=== PATIENT | female | born 1980 | race Caucasian/White ===

== ENCOUNTER 2018-10-03 08:09 | Emergency (ER) | payer BC ==
[2018-10-03 09:34] VITALS: BP 141/91
--- NOTE | 2018-10-03 09:48 | UC ---
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 pt states since yesterday progressive right ear pain mild left no fever, chills + analgesia with improvement. no n/v no sob, no cough no medications reviewed - History of Current Complaint Chief Complaint: UCEar Stated Complaint: BILATERAL EAR CONCERN Time Seen by Provider: 10/03/18 09:40 Hx Obtained From: Patient Hx Last Menstrual Period: 10/03/18 Pain Intensity: 4 - Allergies/Home Medications Allergies/Adverse Reactions: Allergies Allergy/AdvReac Type Severity Reaction Status Date / Time No Known Allergies Allergy Verified 10/03/18 09:30 Home Medications: Home Medications Bcp 1 tab DAILY 10/03/18 [History Confirmed 10/03/18] PMH/Surg Hx/FS Hx/Imm Hx Previously Healthy: Yes - Surgical History Surgical History: None - Family History Known Family History: Positive: Non-Contributory - Social History Occupation: Employed Full-time Lives: With Family Alcohol Use: Weekly Substance Use Type: None Smoking Status (MU): Never Smoked Tobacco Review of Systems All Other Systems Reviewed And Are Negative: Yes ENT: Positive: Ear Ache, Nasal Discharge, Sinus Congestion, Sinus Pain/ Tenderness Respiratory: Positive: Cough Physical Exam - Summary Physical Exam Summary: Vital Signs Reviewed: Yes A+Ox3, no distress Eyes: Conjunctiva Clear, DANAE. EOM intact and full ENT: Hearing grossly normal + erythema, fluid, buldge right ear, left with scant fluid, turbinates inflammed and boggy, + PND, no max pain mmoist, uvula midline, no exudate, no erythema Neck: Positive: Supple Respiratory: Positive: No respiratory distress, No accessory muscle use + CTA throughout no w/r Cardiovascular: RRR nl s1, s2 no m/r CBT <2 sec abd soft + BS nt/nd no guarding, no distension Musculoskeletal Exam: GO x 4 without difficulty Strength Intact, ROM Intact Neurological: Positive: Alert, + sensation throughout Psychological: Positive: Normal Response To Family Skin: Positive: no rash, no ecchymosis Triage Information Reviewed: Yes Vital Signs: Initial Vital Signs Temp 98.7 F 10/03/18 09:31 Pulse 66 10/03/18 09:31 Resp 16 10/03/18 09:31 BP 141/91 10/03/18 09:31 Pulse Ox 100 03/11/19 09:31 Throat Pain/Nasal Course/Dx - Course Course Of Treatment: Pt with head congestion, cough x 2 weeks now with ear pain. VSS. pt with right ear OM. sinsusitis. secretion precaution. humidify air. decongestant. mild elevated BP- followup with PCP - Differential Dx/Diagnosis Provider Diagnosis: Right otitis media Discharge - Sign-Out/Discharge Documenting (check all that apply): Patient Departure All imaging exams completed and their final reports reviewed: No Studies - Discharge Plan Condition: Stable Disposition: HOME Prescriptions: Amoxicillin PO (*) [Amoxicillin 500 MG CAP*] 500 mg PO Q12H #20 cap Fluticasone NASAL SPRAY 50MCG* [Flonase NASAL SPRAY 50MCG*] 2 spray RIGHT NARE DAILY #1 btl Patient Education Materials: Ear Infection (ED), Upper Respiratory Infection ( ED) Forms: *Work Release Referrals: Ciarra Francis MD [Primary Care Provider] - Additional Instructions: - Stay well hydrated. Drink plenty of non-alcoholic, non-caffinated beverages. - Alternate ibuprofen (Advil, Motrin) 600mg and Tylenol every 3 hours for pain or fever. Take with food. Do NOT take for more than 4-5 days. - These infections are spread by secretions - do NOT share eating or drinking utensils - clean items you share with other people such as cell phones, computer mouse, TV remote, computer tablets,etc. After you have been antibiotics for 2 days, change your toothbrush and your pillowcase. - get plenty of restful sleep - humidify the air in the room where you sleep - boil water, run a hot steam shower, vaporizer, cups of water by heat register - okay to take over the counter decongestant (phenylepherine, pseudoephederine) and cough medication - Take Flonase as prescribed for 7 days - contact your doctor or return with questions or concerns - Billing Disposition and Condition Condition: STABLE Disposition: Home
== END 2018-10-03 10:11 | disposition home or self-care (01) ==
LOC: UCCORT 08:09
DX: H66.91 Otitis media, unspecified, right ear (principal)
CPT/HCPCS: 99202; G0463

== ENCOUNTER 2019-07-27 16:34 | Emergency (ER) | payer BC ==
[2019-07-27 18:11] VITALS: BP 147/96
[2019-07-27 19:24] LABS: Influenza A Molecular NEGATIVE (Negative); Influenza B Molecular NEGATIVE (Negative)
--- NOTE | 2019-07-27 20:31 | UC ---
Throat Pain/Nasal Luis A HPI - HPI Summary HPI Summary: Patient is a 39yo female presenting with daughter for c/o sinus congestion, sore throat, and dry cough, and fatigue x2 weeks. Patient states that now has developed fever, chills, body aches. Notes decreased appetite. Denies SOB and wheezing. Denies n/v/d. States she has "never been this tired" and usually runs 20-30 miles a week and has not had the energy to. 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 - History of Current Complaint Chief Complaint: UCRespiratory Stated Complaint: FEVER, STUFFY NOSE Hx Obtained From: Patient Hx Last Menstrual Period: 07/13/19 Onset/Duration: Gradual Onset, Lasting Weeks Pain Intensity: 3 Pain Scale Used: 0-10 Numeric - Allergies/Home Medications Allergies/Adverse Reactions: Allergies Allergy/AdvReac Type Severity Reaction Status Date / Time wheat Allergy Mild GI Upset Verified 07/27/19 18:04 Home Medications: Home Medications Glucosam/Chondr/Collagn/Hyalur [ Glucosamine/Chondroiti] 1 cap PO DAILY [History Confirmed 07/27/19] Ibuprofen TAB* [Advil TAB*] 200 mg PO Q6H PRN 07/27/19 [History Confirmed ] PMH/Surg Hx/FS Hx/Imm Hx Previously Healthy: Yes - Surgical History Surgical History: Yes Surgery Procedure, Year, and Place: ovarian cyst - Family History Known Family History: Positive: Non-Contributory - Social History Occupation: Employed Full-time Alcohol Use: Occasionally Substance Use Type: None Smoking Status (MU): Never Smoked Tobacco Review of Systems All Other Systems Reviewed And Are Negative: Yes Constitutional: Positive: Fever, Chills, Fatigue ENT: Positive: Sore Throat - mild, Sinus Congestion, Sinus Pain/Tenderness. Negative: Ear Ache, Nasal Discharge Respiratory: Positive: Negative. Negative: Shortness Of Breath, Cough Cardiovascular: Positive: Negative. Negative: Chest Pain Gastrointestinal: Positive: Negative. Negative: Vomiting, Nausea Musculoskeletal: Positive: Myalgia Neurological: Positive: Headache Physical Exam Triage Information Reviewed: Yes Appearance: Well-Appearing, No Pain Distress, Well-Nourished Vital Signs: Initial Vital Signs Temp 101.5 F 07/27/19 18:04 Pulse 89 07/27/19 18:04 Resp 18 07/27/19 18:04 BP 147/96 07/27/19 18:04 Pulse Ox 100 07/27/19 18:04 Lab Results 07/27/19 07/27/19 Range/Units 19:05 19:12 Influenza A (Rapid) Negative (Negative) Influenza B (Rapid) Negative (Negative) Group A Strep Rapid Negative (Negative) Vital Signs Reviewed: Yes Eyes: Positive: Conjunctiva Clear ENT: Positive: Hearing grossly normal, Pharyngeal erythema, Nasal congestion, TMs normal, Sinus tenderness - maxillary, Uvula midline. Negative: Nasal drainage, Tonsillar swelling, Tonsillar exudate Neck exam: Normal Neck: Positive: Supple, Nontender, No Lymphadenopathy Respiratory Exam: Normal Respiratory: Positive: Lungs clear, Normal breath sounds, No respiratory distress Cardiovascular Exam: Normal Cardiovascular: Positive: RRR Neurological: Positive: Alert Psychological: Positive: Age Appropriate Behavior Skin Exam: Normal Throat Pain/Nasal Course/Dx - Course Course Of Treatment: Negative rapid strep and flu. Patient requested mono testing as well. I informed her she would be notified only with positive results. I treated patient with augmentin for sinusitis. Educated on viral illness and instructed to continue with symptomatic treatment as well. Instructed to follow up with pcp if symptoms do not resolve. Patient voiced understanding and agreed with treatment plan. - Differential Dx/Diagnosis Differential Diagnosis/HQI/PQRI: Influenza, Mononucleosis, URI Provider Diagnosis: Sinusitis Discharge ED - Sign-Out/Discharge Documenting (check all that apply): Patient Departure All imaging exams completed and their final reports reviewed: No Studies - Discharge Plan Condition: Stable Disposition: HOME Prescriptions: Amoxicillin/Clavulanate TAB* [Augmentin TAB 875*] 875 mg PO BID #14 tab Patient Education Materials: Rhinosinusitis (ED), Fatigue (ED) Forms: *Work Release Referrals: Ciarra Francis MD [Primary Care Provider] - If Needed Additional Instructions: As discussed, take amoxicillin for the treatment of your sinusitis. You may also continue to take Mucinex or thera flu to help relieve symptoms. You may use nasal saline spray or Flonase as directed for symptomatic relief. Get plenty of rest and increase your fluid intake. Your rapid strep and flu tests were negative today. You also received testing for mono and will be notified with any positive results. Follow up with your primary care doctor if your symptoms do not resolve. - Billing Disposition and Condition Condition: STABLE Disposition: Home - Attestation Statements Provider Attestation: Patient not seen by me I was available for consult Chart reviewed VANNA
== END 2019-07-27 20:00 | disposition home or self-care (01) ==
LOC: UCCORT 16:34
DX: J32.9 Chronic sinusitis, unspecified (principal); J02.9 Acute pharyngitis, unspecified; R53.83 Other fatigue; R05 Cough; Z91.018 Allergy to other foods
CPT/HCPCS: 36415; 86308; 87651; 99212; G0463